=== PATIENT | male | born 2000 | race Two or more races ===

== ENCOUNTER 2024-04-16 11:50 | Emergency (ER) | payer OTHER ==
[~2024-04-16] VITALS: Ht 165.1 cm; Wt 66.0 kg
[2024-04-16 12:59] VITALS: BP 123/81; PULSE 81; RESP 16; TEMP 98.2; O2SAT 98
== END 2024-04-16 13:13 ==
LOC: EMS 11:50
DX: S30.811A Abrasion of abdominal wall, initial encounter (principal); Z02.89 Encounter for other administrative examinations; X58.XXXA Exposure to other specified factors, initial encounter; Y93.89 Activity, other specified; Y92.89 Other specified places as the place of occurrence of the external cause; Y99.8 Other external cause status
CPT/HCPCS: 99283; Z7502